=== PATIENT | male | born 1985 | race Two or more races ===

== ENCOUNTER 2022-09-07 11:31 | Day surgery (SDC) | payer BC ==
[2022-09-07] MEDS ORDERED: PROPOFOL 120 ML ONE (12:29)
== END 2022-09-07 13:25 | disposition home or self-care (01) ==
LOC: FASU-ENDO 11:31
PROVIDERS: ATTEND Internal Medicine Gastroenterology
PROC: 0DB68ZX Excision of Stomach, Via Natural or Artificial Opening Endoscopic, Diagnostic (ICD-10-PCS; 2022-09-07)
PROC: 0DB48ZX Excision of Esophagogastric Junction, Via Natural or Artificial Opening Endoscopic, Diagnostic (ICD-10-PCS; 2022-09-07)
PROC: 0DB98ZX Excision of Duodenum, Via Natural or Artificial Opening Endoscopic, Diagnostic (ICD-10-PCS; principal; 2022-09-07 12:25)
DX: K29.50 Unspecified chronic gastritis without bleeding (principal); K20.90 Esophagitis, unspecified without bleeding; R10.13 Epigastric pain
CPT/HCPCS: 88305-TC; 88342-TC